=== PATIENT | male | born 1990 | race Caucasian/White ===

== ENCOUNTER 2017-09-10 08:45 | Outpatient (CLI) | payer BC ==
--- NOTE | 2017-09-10 13:15 | ULT ---
ABDOMINAL ULTRASOUND COMPLETE: History: 27-year-old male with right upper quadrant pain. FINDINGS: Gallbladder is demonstrated without evidence of gallstones, wall thickening, edema, or pericholecyst ic fluid. Common bile duct is 0.4 cm. Exam is somewhat limited by gas. Visualized liver, pancreas, I VC, aorta and spleen are unremarkable. No renal hydronephrosis. No abscess or abnormal fluid collect ion. IMPRESSION: Unremarkable abdominal ultrasound. POS: ANA
== END 2017-09-10 08:46 | disposition home or self-care (01) ==
LOC: ULT 08:45
PROVIDERS: ATTEND Family Medicine
DX: R10.9 Unspecified abdominal pain (principal)
CPT/HCPCS: 76700